=== PATIENT | male | born 1965 | race Two or more races ===

== ENCOUNTER 2016-12-05 17:45 | Emergency (ER) | payer OTHER ==
[2016-12-05 17:52] VITALS: BP 173/103; PULSE 103; TEMP 98.8; O2SAT 99
--- NOTE | 2016-12-05 18:17 | C.PDOC ---
History Of Present Illness 51-year-old male, presents to the emergency department via ambulance after being found sleeping on a bus. he was difficulty to arouse so ems was called and administered narcan at which time the pt regained full consciousness. he denies any complaints at this time. reports etoh use today but denies other drugs. Time Seen by Provider: 12/05/16 17:47 Chief Complaint (Nursing): Substance Abuse History Per: Patient, EMS Current Symptoms Are (Timing): Still Present Past Medical History Reviewed: Historical Data, Nursing Documentation, Vital Signs Vital Signs: Last Vital Signs Temp 98.8 F 12/05/16 17:48 Pulse 103 H 12/05/16 17:48 Resp 19 12/05/16 18:58 BP 173/103 H 12/05/16 17:48 Pulse Ox 99 12/05/16 18:18 - Medical History PMH: Asthma, Emphysema Family History: States: Unknown Family Hx - Social History Hx Alcohol Use: Yes Hx Substance Use: Yes Review Of Systems Constitutional: Negative for: Fever, Chills, Weakness Eyes: Negative for: Vision Change Cardiovascular: Negative for: Chest Pain Respiratory: Negative for: Cough, Shortness of Breath Gastrointestinal: Negative for: Vomiting, Abdominal Pain Neurological: Negative for: Headache Psych: Negative for: Suicidal ideation Physical Exam - Physical Exam Appears: No Acute Distress, Other (Awake and alert, but not following commands.) Skin: Warm, Dry, No Rash Head: Atraumatic Eye(s): bilateral: Normal Inspection Nose: Normal Oral Mucosa: Moist Lips: Normal Appearing Cardiovascular: Rhythm Regular Respiratory: Normal Breath Sounds, No Accessory Muscle Use Extremity: Normal ROM Neurological/Psych: Other (No focal deficits. Ambulatory with steady gait) ED Course And Treatment O2 Sat by Pulse Oximetry: 99 Progress Note: Patient states he wishes to go home. He is ambiulatory with steady gait. Pt will be discharged Medical Decision Making Medical Decision Making: pt a&o x3, well-appearing, steady gait, requesting to be discharged. Disposition - Disposition Referrals: [facility] [Outside] Disposition: HOME/ ROUTINE Disposition Time: 18:14 Condition: STABLE Additional Instructions: Please follow up with your doctor. Return to the ER for any worsening symptoms or for any other concerns. Forms: General Discharge Instructions, Work Excuse - Clinical Impression Clinical Impression: Drug abuse - Scribe Statement The provider has reviewed the documentation as recorded by the Velasquez Platt All medical record entries made by the Velasquez were at my direction and personally dictated by me. I have reviewed the chart and agree that the record accurately reflects my personal performance of the history, physical exam, medical decision making, and the department course for this patient. I have also personally directed, reviewed, and agree with the discharge instructions and disposition.
[2016-12-05 18:59] VITALS: RESP 19
== END 2016-12-05 18:59 | disposition home or self-care (01) ==
LOC: C.ER 17:45
DX: F19.10 Other psychoactive substance abuse, uncomplicated (principal)